=== PATIENT | female | born 1945 | race Caucasian/White ===

== ENCOUNTER 2018-07-20 09:08 | Day surgery (SDC) ==
[2018-07-20] MEDS: TETRACAINE 0.5% UNIT-DOSE OP PRN ×2 (09:35→10:05)
[2018-07-20] MEDS: BETADINE OPTH PREP OP PRN ×2 (09:35→10:06)
[2018-07-20] MEDS: CYCLOGYL 2% OPTH OP PRN ×3 (09:36→09:46)
[2018-07-20] MEDS ORDERED: LIDOCAINE 1% 20 ML MDV ID STA (09:42)
[2018-07-20] MEDS ORDERED: LIDOCAINE 1%/PHENYLEPHRINE 1.5% BSS (SURGERY) INTRAOCULA ONE (09:42)
[2018-07-20] MEDS ORDERED: BSS WITH EPINEPHRINE OP ONE (09:42)
[2018-07-20] MEDS ORDERED: DEX-MOXI-KETOR OPTH INJ 1/0.5/0.4 MG/ML IO ONE (09:42)
[2018-07-20] MEDS ORDERED: BRIMONIDINE TARTRATE 0.2% OPTH SOL OP PRN (09:42)
[2018-07-20] MEDS ORDERED: ZOFRAN 4 MG/2 ML IVP ONE (09:42)
[2018-07-20 09:53] VITALS: TEMP 98.7
[2018-07-20] MEDS ORDERED: SUBLIMAZE ONE (10:15)
[2018-07-20] MEDS ORDERED: VERSED ONE (10:15)
[2018-07-20] MEDS ORDERED: ZOFRAN 4 MG/2 ML ONE (10:15)
[2018-07-20 13:39] VITALS: BP 123/68
== END 2018-07-20 10:55 | disposition home or self-care (01) ==
LOC: SURG 09:08
PROVIDERS: ATTEND Ophthalmology
DX: H25.812 Combined forms of age-related cataract, left eye (principal)